=== PATIENT | male | born 1985 | race Caucasian/White ===

== ENCOUNTER 2017-08-11 16:52 | Emergency (ER) | payer OTHER ==
[~2017-08-11] VITALS: Ht 182.9 cm; Wt 126.6 kg
[~2017-08-11 16:52] MED LIST: ATEN25TA PO
[2017-08-11] MEDS ORDERED: ONDA4TAB10 PO (17:37)
[2017-08-11] MEDS ORDERED: DICY20TA3 PO (17:37)
--- NOTE | 2017-08-11 17:40 | PHYS DOC ---
General Chief Complaint: NAUSEA/VOMITING/DIARRHEA Stated Complaint: N/V Time Seen by MD: 17:35 Source: patient Exam Limitations: no limitations Problems: History of Present Illness Initial Comments Patient is a 31-year-old male who comes in the ED complaining of vomiting. Patient states that the had chills and headache last night, this morning he woke very nauseous he's had 3 episodes of vomiting. He gets generalized abdominal cramping which is relieved by emesis he denies any blood in his emesis. He says throughout the day each time he tries to eat or drink anything he vomits shortly thereafter. He denies any travel or bad food exposure no known sick contacts with similar symptoms. Although he has generalized cramping he denies focal abdominal discomfort. He states he is currently being worked up by his doctor for chronic irritable bowel syndromes with diarrhea and those have not changed. Bowels are nonbloody and diarrhea has not changed since she became ill last night. Last bowel movement described as just before ED arrival loose with flatus foul-smelling. Patient also has history of hypertension, he says he used to be on atenolol but his doctor took him off that medication. There are no monitoring his blood pressures and he has another follow-up appointment at the first of next month to discuss further treatment options for his blood pressure. In the ED his blood pressure is 166/95 he has no chest pain shortness of breath diaphoresis headache or focal neurologic deficit. His elevated blood pressure is asymptomatic. Mildly tachycardic on arrival 106 bpm, this quickly settles down to 97 bpm once he sits down. He is afebrile with normal vital signs otherwise and appears to be relaxed and comfortable. He is hungry but fears eating due to his persistent feelings of nausea. Timing/Duration: 4-6 hours Severity: moderate Modifying Factors: worse with eating Associated Symptoms: nausea/vomiting Allergies: Coded Allergies: diphenhydramine (Verified Allergy, Unknown, Rash, 09/12/16) Past Medical History Medical History: other (hypertension stop taking atenolol, chronic diarrhea possible IBS workup pending with PCP.) Surgical History: noncontributory Social History Smoker: non-smoker Alcohol: none Drugs: none Review of Systems Constitutional: see HPI Respiratory: denies cough, denies shortness of breath, denies wheezing Cardiovascular: denies chest pain, denies palpitations, denies syncope Gastrointestinal: see HPI Genitourinary: denies dysuria, denies frequency, denies hematuria Musculoskeletal: denies back pain, denies joint swelling, denies neck pain Psychiatric/Neurological: see HPI, denies numbness, denies paresthesia, denies weakness Physical Exam General Appearance: no apparent distress, obese Ear, Nose, Throat: hearing grossly normal, normal ENT inspection, normal pharynx Neck: non-tender, supple Respiratory: normal breath sounds, no respiratory distress Cardiovascular: normal peripheral pulses, regular rate, rhythm Gastrointestinal: soft (nondistended, no focal tenderness specifically negative McBurney negative García, bowel sounds hyperactive no palpable masses) Back: no CVA tenderness, no vertebral tenderness Extremities: non-tender, normal inspection 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 It appears he has viral gastroenteritis and antiemetics medication would be appropriate. I also discussed labs and IV hydration however with just 3 episodes of emesis that is probably excessive. He is in agreement he feels that if he could just vomiting he get some fluids in. Signs and symptoms to monitor as well as urgent indication to return to the emergency department were discussed. His questions were answered. Expressed agreement and understanding of treatment plan. 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 See departure for the remainder of his treatment and follow-up instructions. Departure Time of Disposition: 17:38 Disposition: 01 HOME, SELF-CARE Diagnosis: nausea and vomiting, history of hypertension not o Condition: GOOD Patient Instructions: Dehydration, Adult, [id number], Viral Gastroenteritis, [id number] Additional Instructions: As discussed your symptoms appear to be related to a viral gastroenteritis. No driving or operating machinery while sedated with the Phenergan. Clear liquids today and tomorrow, advance slowly to full liquids and then to bland diet as tolerated. [id number] Tylenol as needed. Aggressive hydration with Gatorade and water. Prescription: Dicyclomine, Zofran ODT Follow-up with your doctor in 5 days if not better. Return to ED with new or changing symptoms. BROOKE HERNANDEZ DO Aug 11, 2017 17:40
[2017-08-11] MEDS ORDERED: PROMETHAZINE IM 25 MG/ML VIAL IM ONE (18:00)
[2017-08-11 18:04] VITALS: BP 123/74
== END 2017-08-11 18:05 | disposition home or self-care (01) ==
LOC: ER 16:52
DX: R11.2 Nausea with vomiting, unspecified (principal); R51 Headache; R68.83 Chills (without fever); K58.0 Irritable bowel syndrome with diarrhea; I10 Essential (primary) hypertension; Z88.8 Allergy status to other drugs, medicaments and biological substances
CPT/HCPCS: 96372; 99283; J2550

== ENCOUNTER → 2017-08-31 | Outpatient (CLI) | payer OTHER ==
[2017-08-11 18:04] VITALS: BP 123/74
[~2017-08-31] MED LIST changes: +DICY20TA3 PO; +ONDA4TAB10 PO
--- NOTE | 2017-08-31 11:45 | RAD ---
3 views of the lumbar spine 08/31/2017 Indication: Chronic low back pain Comparison study: None Discussion: No evidence of acute fracture or alignment abnormality is identified. Vertebral body heights and disc spaces are preserved. No evidence of spondylolysis or spondylolisthesis is identified. No acute soft tissue abnormalities are identified. Impression: Unremarkable radiographic appearance of the lumbar spine.
== END | disposition home or self-care (01) ==
LOC: DXRAD 10:39
PROVIDERS: ATTEND Family Medicine
DX: M54.5 Low back pain (principal); I10 Essential (primary) hypertension
CPT/HCPCS: 72100

== ENCOUNTER 2018-03-18 00:11 | Emergency (ER) | payer OTHER ==
[~2018-03-18] VITALS: Ht 182.9 cm; Wt 134.3 kg
[2018-03-18 00:15] VITALS: BP 153/85
[2018-03-18] MEDS ORDERED: BP med (00:40)
[2018-03-18] MEDS ORDERED: niacin (00:40)
[2018-03-18] MEDS ORDERED: NAPR500T8 PO (00:42)
--- NOTE | 2018-03-18 00:42 | PHYS DOC ---
Past History Past Medical History: Hypertension Past Surgical History: No Surgical History Alcohol Use: None Drug Use: None Adult General Chief Complaint Chief Complaint: FOOT INJURY PAIN HPI HPI 32-year-old male presents with nontraumatic left great toe pain. He states it started hurting after his been up walking around on it all day today. He denies any injury. He states he has not taken any ibuprofen. He states there really is no swelling in his toe doesn't hurt when he moves it. Review of Systems Review of Systems Review of systems is as above otherwise unremarkable. Allergies Allergies Allergies Coded Allergies Type Severity Reaction Last Updated Verified diphenhydramine Allergy Unknown Rash 09/12/16 Yes Physical Exam Physical Exam Constitutional: Well developed, well nourished, no acute distress, non-toxic appearance. [] HENT: Normocephalic, atraumatic, bilateral external ears normal, oropharynx moist, no oral exudates, nose normal. [] Eyes: PERRLA, EOMI, conjunctiva normal, no discharge. [] Neck: Normal range of motion, no tenderness, supple, no stridor. [] Cardiovascular:Heart rate regular rhythm, no murmur [] Lungs & Thorax: Bilateral breath sounds clear to auscultation [] Abdomen: Bowel sounds normal, soft, no tenderness, no masses, no pulsatile masses. [] Skin: Warm, dry, no erythema, no rash. [] Back: No tenderness, no CVA tenderness. [] Extremities: Left foot is unremarkable the left first MCP joint is not erythematous or swollen there is no ecchymosis or deformity. [] Neurologic: Alert and oriented X 3, normal motor function, normal sensory function, no focal deficits noted. [] Psychologic: Affect normal, judgement normal, mood normal. [] EKG EKG [] Radiology/Procedures Radiology/Procedures [] Course & Med Decision Making Course & Med Decision Making Pertinent Labs and Imaging studies reviewed. (See chart for details) [] Dragon Disclaimer Dragon Disclaimer This electronic medical record was generated, in whole or in part, using a voice recognition dictation system. Departure Departure: Impression: Primary Impression: Sprain of left great toe Disposition: 01 HOME, SELF-CARE Condition: STABLE Referrals: KAR GARCIA MD (PCP) Patient Instructions: Foot Sprain Additional Instructions: Follow with her primary care physician if there is no improvement. Take naproxen as directed for the discomfort. Scripts Naproxen (NAPROXEN) 500 Mg Tablet.dr 1 TAB PO Q12HR PRN for PAIN, #30 TAB 1 Refill Prov: ARLIN BUSTILLO DO 03/18/18 Problem Qualifiers Primary Impression: Sprain of left great toe Encounter type: initial encounter Qualified Codes: S93.502A - Unspecified sprain of left great toe, initial encounter ARLIN BUSTILLO DO Mar 18, 2018 00:42
[2018-03-18] MEDS ORDERED: KETOROLAC 60 MG/2 ML VIAL. IM ONE (00:51)
[2018-03-18] MEDS: KETOROLAC 60 MG/2 ML VIAL. IM ONE (00:56)
== END 2018-03-18 01:00 | disposition home or self-care (01) ==
LOC: ER 00:11
DX: S93.522A Sprain of metatarsophalangeal joint of left great toe, initial encounter (principal); I10 Essential (primary) hypertension; Z88.8 Allergy status to other drugs, medicaments and biological substances; X58.XXXA Exposure to other specified factors, initial encounter; Y93.89 Activity, other specified; Y99.8 Other external cause status; Y92.89 Other specified places as the place of occurrence of the external cause
CPT/HCPCS: 96372; 99283; J1885

== ENCOUNTER → 2018-07-05 | Outpatient (CLI) | payer OTHER ==
[~2018-07-05] MED LIST changes: +BP med; +NAPR500T8 PO; +niacin
--- NOTE | 2018-07-05 12:34 | RAD ---
Right upper quadrant abdominal ultrasound, 07/05/2018: HISTORY: Right upper quadrant pain The gallbladder is within normal limits in size. It contains echogenic foci with posterior acoustic shadowing compatible with gallstones. The gallbladder chavez are not thickened. No bile duct dilatation is seen. The hepatic echogenicity is increased most commonly due to fatty change. No hepatic mass is evident. The pancreas was largely obscured by overlying bowel. Limited views of the right kidney show no abnormality. IMPRESSION: 1. Cholelithiasis. 2. Increased hepatic echogenicity compatible with hepatic steatosis. Electronically signed by: Valentin Whelan MD (07/05/2018 12:31 PM) [facility]
== END | disposition home or self-care (01) ==
LOC: PMG 10:51
PROVIDERS: ATTEND Family Medicine
DX: K80.20 Calculus of gallbladder without cholecystitis without obstruction (principal); I10 Essential (primary) hypertension; G43.909 Migraine, unspecified, not intractable, without status migrainosus; Z88.8 Allergy status to other drugs, medicaments and biological substances
CPT/HCPCS: 76705

== ENCOUNTER 2019-10-29 07:40 | Emergency (ER) | payer OTHER ==
[~2019-10-29] VITALS: Ht 182.9 cm; Wt 131.9 kg
[~2019-10-29 07:40] MED LIST changes: -ATEN25TA PO; +ATEN25TA42 PO
[2019-10-29] MEDS ORDERED: HYDR25SU18 RC (07:59)
[2019-10-29] MEDS ORDERED: POLY17PO5 PO (07:59)
[2019-10-29] MEDS ORDERED: SENN-121 PO (07:59)
--- NOTE | 2019-10-29 07:59 | PHYS DOC ---
Past History Past Medical History: High Cholesterol, Hypertension Past Surgical History: Tonsillectomy, Other Alcohol Use: Occasionally Drug Use: None Adult General Chief Complaint Chief Complaint: BLOODY STOOL HPI HPI 34-year-old male presents with report of hard stool this morning and noting some bright red blood in the toilet. Patient does report some history with constipation. Patient is unaware of having any hemorrhoids. Does report some rectal discomfort. Denies any nausea or vomiting. Denies fever or chills. Denies use of blood thinners. Denies dizziness or lightheadedness. Review of Systems Review of Systems Constitutional: Denies fever or chills Eyes: Denies redness or eye pain HENT: Denies nasal congestion or sore throat Respiratory: Denies cough or shortness of breath Cardiovascular: Denies chest pain or palpitations GI: Denies abdominal pain, nausea, or vomiting; reports constipation and rectal bleeding : Denies dysuria or hematuria Musculoskeletal: Denies back pain or joint pain Integument: Denies rash or skin lesions Neurologic: Denies headache, focal weakness or sensory changes Complete systems were reviewed and found to be within normal limits, except as documented in this note. Allergies Allergies Allergies Coded Allergies Type Severity Reaction Last Updated Verified diphenhydramine Allergy Unknown Rash 10/29/19 Yes Physical Exam Physical Exam Constitutional: Well developed, well nourished, no acute distress, non-toxic appearance HENT: Normocephalic, atraumatic, oropharynx moist Eyes: PERRL, EOMI, conjunctiva normal, no discharge Neck: Normal range of motion, no tenderness, supple Cardiovascular: Heart rate normal, regular rhythm Lungs & Thorax: Bilateral breath sounds clear to auscultation, no wheezing Abdomen: Soft, no tenderness, no rebound tenderness/distention/guarding Rectal exam: Internal hemorrhoid noted, no significant active bleeding, no stool in rectal vault, scant blood noted on finger Skin: Warm, dry, no erythema, no rash Extremities: No tenderness, ROM intact, no edema Neurologic: Alert and oriented X 3, normal motor function, normal sensory function, no focal deficits noted Psychologic: Affect normal, judgement normal EKG EKG [] Radiology/Procedures Radiology/Procedures [] Course & Med Decision Making Course & Med Decision Making Patient presents with history of present illness and physical exam consistent for constipation with bleeding internal hemorrhoid. Vital signs stable. Patient denies use of blood thinners. Denies dizziness or lightheadedness. Abdomen non- peritoneal. Patient stable for discharge with outpatient follow-up with PCP/GI. GI referral provided. Discussed findings and plan with patient and family, who acknowledge understanding and agreement. Dragdre Disclaimer Dragon Disclaimer This electronic medical record was generated, in whole or in part, using a voice recognition dictation system. Departure Departure: Impression: Primary Impression: Rectal bleeding Additional Impressions: Hemorrhoid Constipation Disposition: 01 HOME, SELF-CARE Condition: STABLE Referrals: KAR GARCIA MD (PCP) TYLER BAL MD Patient Instructions: Constipation, Adult, [id number], Hemorrhoids, [id number], Rectal Bleeding, [id number] Scripts Hydrocortisone Acetate (ANUSOL-HC) 25 Mg Supp.rect 1 SUPP RC BID for Hemorrhoid for 5 Days, #10 SUPP 0 Refills Prov: GRAHAM BUCHANAN DO 10/29/19 Polyethylene Glycol 3350 (MIRALAX) 17 Gm Powd.pack 1 PACKET PO DAILY PRN for CONSTIPATION, #10 PACKET 0 Refills dissolve in water Prov: GRAHAM BUCHANAN DO 10/29/19 Sennosides/Docusate Sodium (Colace 2-in-1 Tablet) 1 Each Tablet 1 TAB PO QHS PRN for CONSTIPATION, #30 TAB 0 Refills Prov: GRAHAM BUCHANAN DO 10/29/19 Problem Qualifiers Additional Impressions: Hemorrhoid Hemorrhoid type: unspecified Qualified Codes: K64.9 - Unspecified hemorrhoids Constipation Constipation type: unspecified constipation type Qualified Codes: K59.00 - Constipation, unspecified GRAHAM BUCHANAN DO Oct 29, 2019 07:59
[2019-10-29 08:19] VITALS: BP 137/91
== END 2019-10-29 08:21 | disposition home or self-care (01) ==
LOC: ER 07:40
DX: K64.8 Other hemorrhoids (principal); K59.00 Constipation, unspecified; E78.00 Pure hypercholesterolemia, unspecified; I10 Essential (primary) hypertension; Z88.8 Allergy status to other drugs, medicaments and biological substances
CPT/HCPCS: 99283